=== PATIENT | female | born 1960 | race Caucasian/White ===

== ENCOUNTER 2016-09-15 14:22 | Emergency (ER) | payer OTHER ==
[~2016-09-15] VITALS: Ht 175.3 cm; Wt 81.1 kg
[~2016-09-15 14:22] MED LIST: ADVIN50/60 INH; FLUT0.15 NAE
[2016-09-15 14:30] VITALS: TEMP 36.5; Ht 175.3 cm; Wt 81.1 kg
[2016-09-15] MEDS ORDERED: CEPH500C PO (15:12)
[2016-09-15] MEDS ORDERED: CEFTRIAXONE SOD INJ 1 GM ADDVIAL IV STA (15:23)
[2016-09-15 15:57] LABS: BASO % 0.6 %; BASO ABS # 0.03 K/uL (0-0.2); COMPLETE YES; EOS % 3.4 %; HEMATOCRIT 38.5 % (37-47); IG% 0.2 %; MEAN CELL VOLUME 79.9 fL (80-100); MEAN CORPUSCULAR HEMOGLOBIN 26.8 pg (25-34); MEAN CORPUSCULAR HGB CONC 33.5 g/dl (32-36); MEAN PLATELET VOLUME 9.4 fL (7.4-10.4); MONO % 10.1 %; NEUT % 55.7 %; PLATELET COUNT 384 K/uL (130-400); RED BLOOD COUNT 4.82 M/uL (4.2-5.4); WHITE BLOOD COUNT 5.33 K/uL (4.8-10.8)
--- NOTE | 2016-09-15 16:16 | DIAGNOSTIC IMAGING REPORT ---
RIGHT FOOT MIN 3 VIEWS ROUTINE CLINICAL HISTORY: Right foot infection. History of tendon surgery. COMPARISON: August 04, 2016 DISCUSSION: The bones are mildly osteopenic. No acute fractures are visualized. No destructive lesions are evident. There is a plantar calcaneal spur. There is no evidence for soft tissue swelling. IMPRESSION: 1. Mild osteopenia 2. No destructive changes identified. No evidence of fracture. Electronically signed by: Corby Monaco M.D. 09/15/2016 4:14 PM Dictated Date/Time: 09/15/2016 4:12 PM
[2016-09-15 16:20] LABS: BUN/CREATININE RATIO 20.1 (10-20); CALCIUM 8.6 mg/dl (8.5-10.1); CREATININE 0.71 mg/dl (0.60-1.20); POTASSIUM 3.9 mmol/L (3.5-5.1)
[2016-09-15 16:22] LABS: ALB/GLOB RATIO 0.9 (0.9-2); C-REACTIVE PROTEIN 0.99 mg/dl (0-0.29)
[2016-09-15] MEDS ORDERED: SULF800T23 PO (18:30)
[2016-09-15] MEDS ORDERED: SEPTRA DS HOME PACK 1 EA VIAL PO ONE (18:30)
[2016-09-15 18:44] VITALS: BP 152/85; PULSE 74; O2SAT 96
--- NOTE | 2016-09-15 22:53 | EMERGENCY ROOM VISIT NOTE ---
History First contact with patient: 15:04 Chief Complaint: INFECTION Stated Complaint: RIGHT FOOT INFECTED Nursing Triage Summary: Triage note: Pt reports "my right foot is infected." pt reports "my foot will clear up and then it will get worse again, it started getting worse on sunday." pt reports she started keflex on sunday - as ordered by [facility]. pt has appt with [facility] sunday and possible surgery on sunday. History of Present Illness The patient is a 55 year old female who presents to the Emergency Room with complaints of infection of her right foot. The patient has had an ongoing infection in this foot for the past several months. She initially stepped on a piece of glass around 5 months ago, which did cause a lacerated tendon. She had this repaired with [facility]. She subsequently had 3 additional surgeries for postoperative infections. The patient contacted [facility] today as she developed purulent drainage from a small hole in her foot as well as redness of her middle right toe. The patient was referred to the emergency department for further care and management. She has not had fever or chills. She has been able to walk on the foot. She rates her current discomfort a 5/10. Review of Systems More than 10 systems were reviewed and otherwise negative with the exception of history of present illness. Past Medical/Surgical History Surgical Problems: (1) S/P foot surgery, right Family History Patient reports no known family medical history. Social History Smoking Status: Never Smoker Marital Status: Housing Status: lives with family Occupation Status: employed Current/Historical Medications Scheduled Cephalexin Monohydrate (Keflex), 500 MG PO QID Fluticasone Prop/Salmeterol (Advair Diskus 500/50 60 Dose), 1 PUFFS INH HS Fluticasone Propionate (Nasal) (Flonase Allergy Relief), 2 SPRAY BENJI HS Sulfamethoxazole-Trimethoprim (Bactrim Ds 800MG/160MG), 1 TAB PO BID Allergies Coded Allergies: No Known Allergies (Unverified , 09/15/16) Physical Exam Vital Signs Date Time Temp Pulse Resp B/P Pulse Ox O2 Delivery O2 Flow Rate FiO2 09/15/16 18:44 74 18 152/85 96 Room Air 09/15/16 17:52 66 18 149/86 98 Room Air 09/15/16 15:48 70 18 149/86 97 Room Air 09/15/16 14:30 36.5 71 18 197/105 98 Room Air Pain Rating (0-10): 0 Physical Exam VITALS: Vitals are noted on the nurse's note and reviewed by myself. Vital signs stable. GENERAL: Well-developed, well-nourished, white female, who is in no acute distress and resting comfortably. Patient is cooperative with the examination. HEAD: Normocephalic atraumatic. HEART: Regular rate and rhythm without murmurs gallops or rubs. LUNGS: Clear to auscultation bilaterally without wheezes, rales or rhonchi. No retractions or accessory muscle use. MUSCULOSKELETAL: The right foot on the plantar aspect has a small 2 mm opening that is draining a mostly clear fluid. The surrounding area is with some mild erythema. Examination of the base of the right third toe shows some erythema and edema. The patient is able to flex and extend the toes. She has full range of motion of the ankle. No palpable cords or obvious abscesses are noted. NEURO: Patient was alert and oriented to person place and time. CN II through XII grossly intact. Medical Decision & Procedures ER Provider Diagnostic Interpretation: RIGHT FOOT MIN 3 VIEWS ROUTINE CLINICAL HISTORY: Right foot infection. History of tendon surgery. COMPARISON: August 04, 2016 DISCUSSION: The bones are mildly osteopenic. No acute fractures are visualized. No destructive lesions are evident. There is a plantar calcaneal spur. There is no evidence for soft tissue swelling. IMPRESSION: 1. Mild osteopenia 2. No destructive changes identified. No evidence of fracture. Laboratory Results 09/15/16 15:39 Red Blood Count 4.82, Mean Corpuscular Volume 79.9, Mean Corpuscular Hemoglobin 26.8, Mean Corpuscular Hemoglobin Concent 33.5, Mean Platelet Volume 9.4, Neutrophils (%) (Auto) 55.7, Lymphocytes (%) (Auto) 30.0, Monocytes (%) (Auto) 10.1, Eosinophils (%) (Auto) 3.4, Basophils (%) (Auto) 0.6, Neutrophils # (Auto ) 2.97, Lymphocytes # (Auto) 1.60, Monocytes # (Auto) 0.54, Eosinophils # (Auto ) 0.18, Basophils # (Auto) 0.03 09/15/16 15:39 Test 09/15/16 15:39 White Blood Count 5.33 K/uL (4.8-10.8) Red Blood Count 4.82 M/uL (4.2-5.4) Hemoglobin 12.9 g/dL (12.0-16.0) Hematocrit 38.5 % (37-47) Mean Corpuscular Volume 79.9 fL (80-100) Mean Corpuscular Hemoglobin 26.8 pg (25-34) Mean Corpuscular Hemoglobin Concent 33.5 g/dl (32-36) Platelet Count 384 K/uL (130-400) Mean Platelet Volume 9.4 fL (7.4-10.4) Neutrophils (%) (Auto) 55.7 % Lymphocytes (%) (Auto) 30.0 % Monocytes (%) (Auto) 10.1 % Eosinophils (%) (Auto) 3.4 % Basophils (%) (Auto) 0.6 % Neutrophils # (Auto) 2.97 K/uL (1.4-6.5) Lymphocytes # (Auto) 1.60 K/uL (1.2-3.4) Monocytes # (Auto) 0.54 K/uL (0.11-0.59) Eosinophils # (Auto) 0.18 K/uL (0-0.5) Basophils # (Auto) 0.03 K/uL (0-0.2) RDW Standard Deviation 41.1 fL (36.4-46.3) RDW Coefficient of Variation 14.1 % (11.5-14.5) Immature Granulocyte % (Auto) 0.2 % Immature Granulocyte # (Auto) 0.01 K/uL (0.00-0.02) Erythrocyte Sedimentation Rate 32 mm/hr (0-21) Anion Gap 8.0 mmol/L (3-11) Est Creatinine Clear Calc Drug Dose 100.8 ml/min Estimated GFR () 110.4 Estimated GFR (Non- 95.2 BUN/Creatinine Ratio 20.1 (10-20) Calcium Level 8.6 mg/dl (8.5-10.1) Total Bilirubin 0.3 mg/dl (0.2-1) Aspartate Amino Transf (AST/SGOT) 12 U/L (15-37) Alanine Aminotransferase (ALT/SGPT) 16 U/L (12-78) Alkaline Phosphatase 120 U/L (45-117) C-Reactive Protein 0.99 mg/dl (0-0.29) Total Protein 7.6 gm/dl (6.4-8.2) Albumin 3.7 gm/dl (3.4-5.0) Globulin 3.9 gm/dl (2.5-4.0) Albumin/Globulin Ratio 0.9 (0.9-2) Medications Administered Medications (Trade) Dose Ordered Sig/Ankur Route Start Time Stop Time Status Last Admin Dose Admin Ceftriaxone Sodium (Rocephin Inj) 1 gm NOW STAT IV 09/15/16 15:23 09/15/16 15:26 DC 09/15/16 15:46 1 GM Trimethoprim/ Sulfamethoxazole (Sulfameth/ Trimeth Ds 800/ 160MG Home Pack) 1 homepack UD ONCE PO 09/15/16 18:30 09/15/16 18:31 DC 09/15/16 18:43 1 HOMEPACK ED Course Physical exam and history were performed. Nursing notes and EMR were reviewed. Patient appears to have what appears to be an infection of her right foot. This has been ongoing for some time for the patient and she was evidently sent here by orthopedics. She does not have gross abscess or significant tenderness with range of motion. I did gather a culture from the wound. Further discussion with the patient shows that she has been on Keflex for the past several days. Because of this I did elect to draw labs and establish IV access. X-ray was performed. The patient was given 1 g IV Rocephin here in the department. The patient's blood work is as above and was reviewed. She does not have a significant elevated white blood cell count, anemia, bandemia, or gross electrolyte imbalance. Her sedimentation rate and CRP are mildly elevated. X- ray does not show fracture or destructive bony process. I did attempt to contact the patient's surgeon, but after waiting for nearly 2 hours in the emergency department I was informed that her surgeon was out of town, and it was unlikely that we would be in touch with him today. Overall the patient does appear stable for discharge home. She does not appear to have bony destruction or other significant findings on exam. She does have an appointment in a few days with orthopedics. I will add Bactrim to her Keflex, as hopefully this will continue to improve her symptoms. The patient was otherwise thoroughly invited to return to the emergency department with new, worsening, or concerning symptoms. The patient was pleased with this plan of voice understanding. The chart was completed utilizing [employer] Speech Voice Recognition Software. Grammatical errors, random word insertions, pronoun errors, and incomplete sentences are an occasional consequence of this system due to software limitations, ambient noise, and hardware issues. Any formal questions or concerns about the content, text, or information contained within the body of this dictation should be directly addressed to the provider for clarification. . Medical Decision Differential diagnosis includes, but is not limited to: Cellulitis, osteomyelitis, abscess, postoperative infection, and others Impression Primary Impression: Infection of right foot Departure Information Dispostion Home / Self-Care Condition GOOD Prescriptions Sulfamethoxazole-Trimethoprim (Bactrim Ds 800MG/160MG) 1 Tab Tab 1 TAB PO BID for 7 Days, #14 TAB Prov: Tim Castillo PA-C 09/15/16 Referrals Kevin Gottlieb D.O. (PCP) Forms HOME CARE DOCUMENTATION FORM, IMPORTANT VISIT INFORMATION Patient Instructions My [facility] Additional Instructions You were seen and evaluated today on an emergency basis only. This is not a substitute for, or an effort to provide, complete comprehensive medical care. It is not possible to recognize and treat all injuries or illnesses in a single emergency department visit. For this reason it is recommended that you followup with Orthopedics, Dr. Gottlieb's office, as scheduled on Sunday for ongoing care and evaluation. Continue Keflex. Trimethoprim-Sulfamethoxazole(Bactrim DS): Take one pill twice daily for 7 days for your skin infection. All antibiotics can cause diarrhea. If this occurs and you feel worse or it does not resolve in 1-2 days follow up with your doctor or return to the Emergency Department as this could be signs of serious underlying problems. Any medication can cause an allergic reaction, stop the pills immediately and return to the ER for rash, hives, breathing difficulties, or swelling. You are welcome to return to the emergency department anytime with new, worsening, or concerning symptoms.
[2016-09-20] MEDS ORDERED: SULF800T23 PO (07:55)
== END 2016-09-15 19:09 | disposition home or self-care (01) ==
LOC: C.EDB 14:26
DX: L08.9 Local infection of the skin and subcutaneous tissue, unspecified (principal); Z98.890 Other specified postprocedural states

== ENCOUNTER 2016-09-20 11:21 | Inpatient (IN) | payer OTHER ==
--- NOTE | 2016-09-19 18:38 | HISTORY & PHYSICAL EXAMINATION ---
DATE OF ADMISSION: 09/20/2016 SUBJECTIVE CHIEF COMPLAINT: Right foot pain. HISTORY OF PRESENT ILLNESS: This is a patient who had undergone a right foot surgery to repair the flexor tendon laceration on the plantar aspect of her right foot and also an I\T\D after a foreign body that penetrated the patient's foot. The surgery took place on 04/17/2016. Over the past 5 months, the patient has undergone 3 separate I\T\D of the right foot for recurrent infection, more recently she had a flareup of the infection and was treated with p.o. antibiotics; however, after stopping the p.o. antibiotics, the foot became inflamed again and an area opened and was draining purulent discharge and also the pain had increased. She was seen recently and she is being set up for a repeat I\T\D of the right foot. PAST MEDICAL HISTORY: Allergic rhinitis. PAST SURGICAL HISTORY: Right foot surgery x4. SOCIAL HISTORY: The patient denies alcohol and tobacco use. ALLERGIES: No known drug allergies. FAMILY HISTORY: Noncontributory. CURRENT MEDICATIONS: Flonase. OBJECTIVE PHYSICAL EXAMINATION: GENERAL: The patient is alert and oriented x3. She is in no acute distress. She is a well-dressed, well-nourished 55-year-old female, her affect is appropriate. CARDIOVASCULAR: Heart has a regular rhythm and rate without murmurs. LUNGS: Clear to auscultation bilateral. Dorsalis pedis, posterior tib pulse +2/4. Cap refill is less than 2 seconds. LYMPHATIC: No evidence of any swollen lymph nodes. MUSCULOSKELETAL: The patient has a compensated gait favoring the right lower extremity. Upon inspection of the right lower extremity, the patient is noted to have an open area at the mid portion of the incision at the plantar aspect of the right forefoot. At this time, there is mild bloody discharge. There is no purulence noted and there is no fluctuance noted beneath the skin. There is some tenderness with palpation of the third toe and with passive range of motion of the third toe. There is no erythema. There is no streaking noted. NEUROLOGIC: Sensation normal and intact distally. ASSESSMENT AND DIAGNOSES: 1. Right foot cellulitis with possible recurrent abscess. 2. Right foot ulceration status post right foot surgery x4. PLAN: Above assessment was discussed with the patient. At this time, it was recommended the patient to undergo a repeat I\T\D of the plantar aspect of the right foot also removal of the permanent sutures from within the third flexor tendon that was repaired in April of 2016. All potential risks, benefits, complications, alternatives and rehab have been discussed with the patient. At this time, she wishes to proceed with the surgery as indicated. She will be scheduled for the surgery on 09/20/2016.
[~2016-09-20] VITALS: Ht 175.3 cm; Wt 75.0 kg
[2016-09-20] VITALS (8 sets, daily range): BP systolic 134–152; BP diastolic 75–96; PULSE 66–82; TEMP 36.3–36.6; O2SAT 95–100; Ht 175.3 cm; Wt 75.0 kg
[~2016-09-20 11:21] MED LIST changes: +BUPIVACAINE 0.5 % 5 MG/1 ML PF 10ML VIAL ONE; +CEPH500C PO; +LACTATED RINGER'S 1000ML 1,000 ML IV SCH; +SULF800T23 PO
[2016-09-20] MEDS ORDERED: albuterol inhaler INH (12:19)
[2016-09-20] MEDS ORDERED: CEPH500C2 PO (12:20)
[2016-09-20] MEDS ORDERED: ACET-1256 PO (12:21)
[2016-09-20] MEDS ORDERED: CEFAZOLIN SOD 1000MG/55 ML D5W IV ONE (12:51)
[2016-09-20] MEDS ORDERED: FENTANYL CITRATE INJ 50 MCG/1 ML 2 ML VIAL ONE (13:04)
[2016-09-20] MEDS ORDERED: MIDAZOLAM HCL 1 MG/ML 2ML VIAL ONE (13:04)
[2016-09-20] MEDS ORDERED: LACTATED RINGER'S 1000ML 1,000 ML IV PRN (13:32)
--- NOTE | 2016-09-20 13:35 | History & Physical Bridge Note ---
H&P Re-Evaluation Bridge Note: I have examined the patient, reviewed the History & Physical and in the interval since the performance of the History & Physical I have noted the following changes of clinical significance: No changes noted
[2016-09-20] MEDS ORDERED: FENTANYL CITRATE INJ 50 MCG/1 ML 2 ML VIAL IV PRN (13:45)
[2016-09-20] MEDS ORDERED: ONDANSETRON INJ 2 MG/ML 2 ML VIAL IV PRN ×2 (13:45→15:30)
[2016-09-20] MEDS ORDERED: KETAMINE HCL INJ 50 MG/ML 10 ML VIAL ONE (14:14)
[2016-09-20] MEDS ORDERED: PROPOFOL IV EMULSION 10 MG/ML 20 ML VIAL IV ONE (14:26)
[2016-09-20] MEDS ORDERED: ONDANSETRON INJ 2 MG/ML 2 ML VIAL ONE (14:26)
[2016-09-20] MEDS ORDERED: SODIUM CHLORIDE 0.9% INJ 10 ML VIAL ONE (14:26)
[2016-09-20] MEDS ORDERED: EpHEDrine SULFATE 50MG/5ML SYR ONE (14:26)
[2016-09-20] MEDS ORDERED: LIDOCAINE HCL 2% 2 ML VIAL (20MG/ML) ONE (14:26)
[2016-09-20] MEDS ORDERED: DEXAMETHASONE SOD INJ 4 MG/ML VIAL ONE (14:26)
[2016-09-20] MEDS ORDERED: BUPIVACAINE 0.5 % 5 MG/1 ML MPF 30ML VIAL INJ ONE (15:26)
[2016-09-20] MEDS ORDERED: BACITRACIN 50000 UNIT VIAL IR ONE (15:26)
[2016-09-20] MEDS ORDERED: MoRPHine SULFATE 2 MG/ML CARP IV PRN (15:30)
[2016-09-20] MEDS ORDERED: BISACODYL 10 MG SUPP PR PRN (15:30)
[2016-09-20] MEDS ORDERED: ALUMINUM/MAGNESIUM/SIMETH (MAALOX MAX) 30 ML UDC PO PRN (15:30)
[2016-09-20] MEDS ORDERED: ZOLPIDEM TARTRATE 5 MG TAB PO PRN (15:30)
[2016-09-20] MEDS ORDERED: SOD PHOSPHATE/SOD BIPHOSPHATE ENEMA 132 ML BTL PR PRN (15:30)
[2016-09-20] MEDS ORDERED: MAGNESIUM HYDROXIDE SUSP 30 ML UDC PO PRN (15:30)
[2016-09-20] MEDS ORDERED: KETOROLAC TROMETHAMINE 30 MG/ML VIAL ONE (15:31)
--- NOTE | 2016-09-20 15:38 | [facility] Post Operative Brief Note ---
Immediate Operative Summary Operative Date Sep 20, 2016. Pre-Operative Diagnosis Right foot deep infection, Retained sutures x 2, Recurrent ulcer plantar foot, Cellulitis of right foot Post-Operative Diagnosis Right foot deep infection, Retained sutures x 2, Recurrent ulcer plantar foot, Cellulitis of right foot Procedure(s) Performed Right Foot Incision and Drainage Plantar Ulceration, Removal Sutures from 3rd Flexor Tendon x 2, Debridement of:Skin, Fascia, Tendon Surgeon Dr. Gottlieb Academic Support Coordinator Surgeon(s) none Estimated Blood Loss 3ml Findings See Dict Specimens A) cultures of right lower limb, plantar, deep Drains Iodoform gauze 1/2" Anesthesia GLMA w/ partial ankle block Complication(s) None Disposition Recovery Room / PACU
--- NOTE | 2016-09-20 16:16 | Anesthesiology Progress Note ---
Anesthesia Post Op Note Date & Time Sep 20, 2016 at 16:15 Vital Signs Pain Intensity: 5 Vital Signs Past 12 Hours Date Time Temp Pulse Resp B/P Pulse Ox O2 Delivery O2 Flow Rate FiO2 09/20/16 16:01 36.3 86 20 143/93 100 Nasal Cannula 2 09/20/16 15:48 82 18 09/20/16 15:48 82 18 138/86 99 09/20/16 15:48 82 18 138/86 99 09/20/16 15:48 82 18 09/20/16 15:43 88 13 09/20/16 15:43 92 13 148/79 100 09/20/16 15:43 92 13 148/79 100 09/20/16 15:43 88 13 09/20/16 15:38 86 20 09/20/16 15:38 85 20 155/93 98 09/20/16 15:38 85 20 155/93 98 09/20/16 15:38 86 20 09/20/16 15:33 85 18 100 09/20/16 15:33 85 18 100 09/20/16 15:33 84 18 09/20/16 15:33 84 18 09/20/16 15:28 90 19 100 09/20/16 15:28 90 19 09/20/16 15:28 90 19 09/20/16 15:28 90 19 100 09/20/16 15:23 36.1 91 16 155/93 100 Mask 10 09/20/16 12:10 36.4 66 18 152/96 99 Room Air Notes Mental Status: alert / awake / arousable, participated in evaluation Pt Amnestic to Procedure: Yes Nausea / Vomiting: adequately controlled Pain: adequately controlled Airway Patency, RR, SpO2: stable & adequate BP & HR: stable & adequate Hydration State: stable & adequate Anesthetic Complications: no major complications apparent
--- NOTE | 2016-09-20 17:08 | OPERATIVE REPORT ---
DATE OF OPERATION: 09/20/2016 PREOPERATIVE DIAGNOSES: 1. Right foot deep infection. 2. Retained sutures x2. 3. Right foot recurrent ulcer, plantar foot. 4. Cellulitis. POSTOPERATIVE DIAGNOSES: Same. PROCEDURES: 1. Right foot incision and drainage plantar ulcer. 2. Debridement of skin, fascia, and tendon of the right foot. 3. Removal of sutures x2. SURGEON: Dr. Gottlieb. GENERAL DENTIST/OWNER: None. ANESTHESIA: General LMA with partial ankle block. SPECIMENS: Aerobic, anaerobic and Gram stain, specimens from the plantar aspect of the right foot. DRAINS: Iodoform gauze 1/2 inch x6 inches. COMPLICATIONS: None. BLOOD LOSS: 5 mL. 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 At that time she lacerated completely her third flexor tendon, right foot. She had inability to flex the 3rd toe. She underwent operative repair of the third flexor tendon and developed a deep infection of the right foot, had multiple irrigations and debridements. The right foot eventually healed, the flexor tendon with stable fixation of the toe, some stiffness and then several months after developed a deep infection in the ulceration plantar aspect of the foot. Placed on antibiotics which resolved the ulceration. She has had recurrence of the ulcerations and scheduled for surgery as indicated. All potential risks, benefits, complications, alternatives, rehab, potential for incomplete relief of symptoms, need for further surgery, DVT, PE, , persistent pain, swelling, scarring, weakness, neurovascular injury, compromise of function of the 3rd toe, need for further washouts was discussed with patient and her and they decided to proceed with the procedure as indicated. DESCRIPTION OF PROCEDURE: The patient was taken to the operative suite, placed supine on the operating room table. I reviewed the consent and identification of proper operative site. The patient was anesthetized, LMA was placed. Tourniquet was applied high on the right thigh over cast padding; however, the pneumatic tourniquet was not used during the case. Next, right lower extremity was then sterilely prepped and draped in usual fashion, elevated and partially exsanguinated with an Esmarch bandage. Esmarch tourniquet applied over sterile surgical towel at the level of the ankle. Next, a partial ankle block was then performed with approximately 20 mL of 0.5% Marcaine plain, the posterior tibial nerve and then over the saphenous nerve and then over the medial plantar nerve branch. Next, a zigzag incision was placed on the plantar aspect of the right foot at the site of previous incision including through the ulceration of the plantar foot. Careful dissection was performed through the scar tissue down to the level of the third flexor tendon sheath. There was noted to be fluid adjacent to the repair site which appeared to be intact. The sutures present were removed and the fluid was then cultured, aerobic, anaerobic and Gram stain specimens passed off. Next, the tissue was then debrided using a curette and rongeur back to viable appearing tissue. There was abundant scar present. The flexor tendon was then carefully debrided with a rongeur and a 15 blade and forceps as well as the fascia with a rongeur and curette. After all questionable necrotic tissue and exudate was then removed. The wound was then cleansed with pulsatile lavage with 3 liters with bacitracin. Next, top gloves and top sheet were changed and the skin flaps were then loosely closed using interrupted 4-0 nylon over a 1/2 inch iodoform gauze drain which was then placed through the ulceration site on the plantar aspect of the foot. Next, a sterile, lightly compressive dressing was applied, overwrapped with a Xeroform gauze, sterile 4 x 4's, cast padding and ABD pad was then applied overwrapped with a Coban. The tourniquet was released. The patient was awakened and taken to recovery in stable condition. I attest to the content of the Intraoperative Record and any orders documented therein. Any exceptio ns are noted below.
[2016-09-20] MEDS: OXYCODONE HCL IR 5 MG TAB (IMMEDIATE RELEASE) PO PRN ×2 (19:09→23:41)
[2016-09-20] MEDS: D5W AND 1/2NSS + 20MEQ KCL 1,000 ML IV SCH (19:10)
[2016-09-20] MEDS: NAFCILLIN SOD IV 2 GM in DEXTROSE 5% ADD-VANTAGE 100ML 100 ML IV SCH ×2 (19:10→22:49)
[2016-09-20] MEDS ORDERED: INFLUENZA VIRUS QUAD VACCINE 0.5 ML SYR IM. ONE (19:15)
[2016-09-20] MEDS ORDERED: INFLUENZA ADMINISTRATION CHARGE ONE (19:15)
--- NOTE | 2016-09-20 20:37 | INTERNAL MEDICINE CONSULTATION ---
DATE OF CONSULTATION: 09/20/2016 ATTENDING PHYSICIAN: Kevin Gottlieb DO REASON FOR CONSULTATION: Perioperative medical management. HISTORY OF PRESENT ILLNESS: Ms. Duran is a 55-year-old lady, who I am asked to see regarding perioperative management of her asthma and allergic rhinitis. She is being seen postop after undergoing I&D of a right plantar infection. She has had several I&Ds over the past couple of months. This initially started after she underwent a right third flexor tendon repair on 04/17/2016. Apparently she had stepped on a piece of glass, had total laceration of the right third flexor tendon, underwent repair, postoperatively developed an infection and since that time has undergone now for separate I\T\D procedures of the right foot. Most recently, she was here in May 2016 and at that time was found to have MSSA growing from her wound cultures. She was discharged home to complete at least 2 weeks of nafcillin. She says that she followed up as an outpatient. This did heal. She was back in our ER in August 2016 again complaining of cellulitis, was discharged home on p.o. antibiotics and was seen again on September 15 in the ER again with an infection. At this point, arrangements were made for her to undergo another I\T\D. At this point, she is being seen postoperatively on the medical/surgical floor. She is resting comfortably in her bed and has no complaints at this time. She denies any recent fever, chills or malaise. Denies any chest pain, shortness of breath or cough. She has had no recent asthma exacerbation. Denies any abdominal pain, nausea, vomiting or diarrhea. Denies any urinary complaints. Denies any lower extremity edema. Denies any newly swollen or painful joints and denies any rash. She did have some basic workup in the ER on September 15. At that time, her CBC showed a white blood cell count of 5300 with 56% neutrophils. Hemoglobin was 12.9, hematocrit 38.5, platelets 384,000 and sed rate was elevated at 32. A set of chemistries revealed sodium of 140, potassium 3.9, chloride 108, bicarbonate 24, BUN 14, creatinine 0.7, glucose 94, calcium 8.6, albumin was 3.7, protein was 7.6, alkaline phosphatase was 120, ALT 16, AST 12. CRP was also elevated at 0.99. Urinalysis at that time showed clear yellow urine that was trace positive for occult blood, but had no RBCs; it was otherwise unremarkable. An x-ray of the right foot on 09/15/2016 showed mildly osteopenic bones with no evidence for any destructive changes. No evidence for fracture. No evidence for soft tissue swelling. ALLERGIES: None. CURRENT MEDICATIONS: Include: 1. Nafcillin. 2. Maalox p.r.n. 3. Dulcolax suppository p.r.n. 4. Benadryl p.r.n. 5. Colace p.r.n. 6. Fentanyl p.r.n. for pain. 7. Milk of magnesia p.r.n. 8. Morphine p.r.n. 9. Multivitamin. 10. Zofran p.r.n. 11. Oxycodone. 11. Protonix. 12. Potassium chloride. 13. Senokot. 14. Fleet enema p.r.n. 15. Ambien. PAST MEDICAL HISTORY: Includes: 1. Asthma, which she reports has been well-controlled, has not had a recent exacerbation. 2. Allergic rhinitis, controlled with Flonase. FAMILY HISTORY: The patient denies any family history of asthma, hypertension, atherosclerotic coronary artery disease or malignancy. SOCIAL HISTORY: The patient lives at home with her . She is completely independent. 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 She is a lifelong nonsmoker. Does not abuse alcohol or illicit drugs. REVIEW OF SYSTEMS: A 10-system review was conducted and was found to be completely negative except as otherwise indicated above in the history of present illness. PHYSICAL EXAMINATION: VITAL SIGNS: Currently show temperature is 36.6, pulse 82, respiratory rate 14, blood pressure is 139/77 and oxygen saturation 98% on room air. GENERAL: The patient is awake, alert, oriented in no acute distress. HEENT: The sclerae are nonicteric and the mucous membranes are moist. NECK: The trachea is midline. There is no JVD. RESPIRATORY: The lungs are grossly clear with fair to good air entry. She is not in any respiratory distress. CARDIOVASCULAR: S1 and S2 are heard with regular rate and rhythm. There is no murmur, rub or gallop. ABDOMEN: Soft, nontender, nondistended. Bowel sounds are present. EXTREMITIES: Warm and well-perfused without edema. SKIN: Warm and dry. There is no cyanosis or rash. MUSCULOSKELETAL: There is no chest wall tenderness. There are no obvious joint effusions or joint tenderness. EXTREMITIES: The right foot was not examined as it is surgically dressed, but the dressing does appear to be clean and dry. NEUROLOGIC: Nonfocal. PSYCHIATRIC: The patient is calm and cooperative. DIAGNOSTIC INVESTIGATIONS: Recent labs and imaging were reviewed as outlined above in the history of present illness. ASSESSMENT AND PLAN: 1. Recurrent right foot infection. We will await further recommendations from infectious disease. The patient will be continued on nafcillin as her culture from the grew out methicillin-resistant staphylococcus aureus. Further care per orthopedics and infectious disease. 2. Asthma. This is stable and not in exacerbation. Would continue her on her usual Advair with p.r.n. albuterol as needed. 3. Allergic rhinitis, would continue on Flonase, this is well-controlled as well. 4. Deep venous thrombosis prophylaxis per orthopedics. She has on SCDs and ROSE hose. Thank you for allowing us to participate in the care of your patient. We will continue to follow her along with you. Total time spent preparing this consult was 30 minutes. YUNG
[2016-09-20] MEDS: DOCUSATE SODIUM 100 MG CAP PO SCH (21:46)
[2016-09-20] MEDS: SENNA 8.6 MG TAB PO SCH (21:46)
[2016-09-21] MEDS: NAFCILLIN SOD IV 2 GM in DEXTROSE 5% ADD-VANTAGE 100ML 100 ML IV SCH ×3 (02:21→09:25)
[2016-09-21 03:32] VITALS: BP 108/65; PULSE 63; TEMP 36.5; O2SAT 97
[2016-09-21] MEDS: D5W AND 1/2NSS + 20MEQ KCL 1,000 ML IV SCH ×3 (04:20→23:39)
[2016-09-21 06:00] LABS: HEMATOCRIT 36.1 % (37-47); MEAN CELL VOLUME 79.9 fL (80-100); MEAN CORPUSCULAR HEMOGLOBIN 26.1 pg (25-34); MEAN CORPUSCULAR HGB CONC 32.7 g/dl (32-36); MEAN PLATELET VOLUME 9.3 fL (7.4-10.4); PLATELET COUNT 372 K/uL (130-400); RED BLOOD COUNT 4.52 M/uL (4.2-5.4); WHITE BLOOD COUNT 10.23 K/uL (4.8-10.8)
[2016-09-21 06:30] LABS: BUN/CREATININE RATIO 9.3 (10-20); CREATININE 0.98 mg/dl (0.60-1.20); POTASSIUM 4.3 mmol/L (3.5-5.1)
[2016-09-21 07:00] VITALS: BP 100/60; PULSE 72; TEMP 36.3; O2SAT 97
--- NOTE | 2016-09-21 08:06 | Orthopedic Progress Note ---
Orthopedic Progress Note Date of Service Sep 21, 2016. Subjective Post OP Day: 1 Reports: feeling well, pain controlled w PO medications (Still feels like the block is working. Her foot is just now starting to have some tingling.), Denies : calf pain, complaints Objective calves soft nontender, N/V intact, capillary refill less than 2 sec., dressing C /D/I, incision C/D/I, A&O x3, toes mobile Right foot plantar incision is well approximated. Packing from the central portion of the wound. No erythema or purulence noted. Bloody d/c from the packing site. Approximately 8 inches of packing removed. Date Time Temp Pulse Resp B/P Pulse Ox O2 Delivery O2 Flow Rate FiO2 09/21/16 07:00 36.3 72 18 100/60 97 Room Air 09/21/16 03:32 36.5 63 16 108/65 97 Room Air 09/20/16 23:30 Room Air 09/20/16 23:25 36.4 79 16 137/75 96 Room Air 09/20/16 20:12 36.4 76 16 143/76 96 Room Air 09/20/16 19:00 36.4 76 16 138/79 96 Room Air 09/20/16 18:42 36.3 74 16 146/84 Room Air 09/20/16 18:10 36.3 16 146/84 95 Room Air 09/20/16 17:32 36.6 82 14 139/77 98 Room Air 09/20/16 17:00 Room Air 09/20/16 17:00 Room Air 09/20/16 16:56 36.4 74 18 134/75 100 Room Air 09/20/16 16:01 36.3 86 20 143/93 100 Nasal Cannula 2 09/20/16 15:48 82 18 09/20/16 15:48 82 18 138/86 99 09/20/16 15:48 82 18 138/86 99 09/20/16 15:48 82 18 09/20/16 15:43 88 13 09/20/16 15:43 92 13 148/79 100 09/20/16 15:43 92 13 148/79 100 09/20/16 15:43 88 13 09/20/16 15:38 86 20 09/20/16 15:38 85 20 155/93 98 09/20/16 15:38 85 20 155/93 98 09/20/16 15:38 86 20 09/20/16 15:33 85 18 100 09/20/16 15:33 85 18 100 09/20/16 15:33 84 18 09/20/16 15:33 84 18 09/20/16 15:28 90 19 100 09/20/16 15:28 90 19 09/20/16 15:28 90 19 09/20/16 15:28 90 19 100 09/20/16 15:23 36.1 91 16 155/93 100 Mask 10 09/20/16 12:10 36.4 66 18 152/96 99 Room Air Laboratory Results 24 Hours: Test 09/21/16 05:42 Hematocrit 36.1 % Hemoglobin 11.8 g/dL Additional Notes: GRAM STAIN Final 09/21/16-0759 RESULT MANY POLYS NO ORGANISMS SEEN OR AER/NIKKI CULT Results Pending Assessment & Plan Assessment: POD #1 s/p 1. Right foot incision and drainage plantar ulcer. 2. Debridement of skin, fascia, and tendon of the right foot. 3. Removal of sutures x2 Plan: IV Nafcillin Awaiting final cultures. Gram stain negative for organisms. Consult ID for antibiotic input. D/C planning. Inhouse Planning Pain Management: Morphine, Oxy IR DVT Prophylaxis: ASA Discharge Planning Discharge Planning: uncertain (Possibly home with home health if IV ABX needed. ) Pain Management: Percocet
[2016-09-21] MEDS: ASPIRIN 81 MG ECTAB PO SCH ×2 (09:16→21:14)
[2016-09-21] MEDS: PANTOprazole SOD 40 MG TAB PO SCH (09:16)
[2016-09-21] MEDS: MULTIVITAMIN TAB PO SCH (09:16)
[2016-09-21] MEDS: DOCUSATE SODIUM 100 MG CAP PO SCH ×2 (09:16→21:14)
[2016-09-21] MEDS: OXYCODONE HCL IR 5 MG TAB (IMMEDIATE RELEASE) PO PRN ×2 (09:25→15:47)
--- NOTE | 2016-09-21 09:32 | Medical Consult ---
Consultation Date of Consultation: Sep 21, 2016. Attending Physician: Kevin Gottlieb D.O. Reason for Consultation: Right foot infection History of Present Illness 55-year-old female well known to me from previous infectious disease consultations, with history of right foot infection following repair of traumatic tendon injury after stepping on glass. Cultures were positive at onset for methicillin sensitive Staph aureus comment patient has previously received a 6 week course of IV nafcillin followed by oral therapy. She did well until oral antibiotics were discontinued, and she has now had several recurrences of soft tissue infection, again growing methicillin sensitive Staph aureus. She has responded to drainage and antibiotics, but now Re presents with 1 week of worsening infection with purulent drainage, no fever but with chills. Has now undergone incision and drainage with significant debridement and removal of several sutures. About receiving IV nafcillin. Tolerating without apparent difficulty. Past Medical/Surgical History Surgical Problems: (1) S/P foot surgery, right (2) Asthma Family History Patient reports no known family medical history. Social History Smoking Status: Never Smoker Marital Status: Housing Status: lives with family Occupation Status: employed Allergies Coded Allergies: No Known Allergies (Unverified , 09/20/16) Current Inpatient Medications Current Inpatient Medications Medications (Trade) Dose Ordered Sig/Ankur Route Start Time Stop Time Status Last Admin Dose Admin Potassium Chloride/Dextrose/ Sod Cl (D5W And 1/2nss + 20meq KCl) 1,000 ml @ 100 mls/hr Q10H IV 09/20/16 18:00 10/20/16 17:59 09/21/16 04:20 100 MLS/HR Oxycodone HCl (Roxicodone Immediate Rel Tab) 1-2 TABS FOR PAIN 1 TABLET ... Q4H PRN PO 09/20/16 15:30 10/04/16 15:29 09/20/16 23:41 10 MG Morphine Sulfate (MoRPHine SULFATE INJ) 1 mg Q1HWA PRN IV 09/20/16 15:30 10/04/16 15:29 Magnesium Hydroxide (Milk Of Magnesia Susp) 30 ml Q6H PRN PO 09/20/16 15:30 10/20/16 15:29 Bisacodyl (Dulcolax Supp) 10 mg DAILY PRN HI 09/20/16 15:30 10/20/16 15:29 Sodium Biphosphate/ Sodium Phosphate (Fleet Enema) 132 ml DAILY PRN HI 09/20/16 15:30 10/20/16 15:29 Senna (Senokot Tab) 17.2 mg HS PO 09/20/16 21:00 10/20/16 20:59 09/20/16 21:46 17.2 MG Docusate Sodium (coLACE CAP) 100 mg BID PO 09/20/16 21:00 10/20/16 20:59 09/20/16 21:46 100 MG Diphenhydramine HCl (Benadryl Cap) 25 mg Q8H PRN PO 09/20/16 15:30 10/20/16 15:29 Al Hydrox/Mg Hydrox/Simethicone (Maalox Max Susp) 15 ml Q4H PRN PO 09/20/16 15:30 10/20/16 15:29 Zolpidem Tartrate (Ambien Tab) 5 mg HSZ PRN PO 09/20/16 15:30 10/20/16 15:29 Multivitamins (Multivitamin Tab) 1 tab QAM PO 09/21/16 09:00 10/21/16 08:59 Ondansetron HCl (Zofran Inj) 4 mg Q6H PRN IV 09/20/16 15:30 10/20/16 15:29 Pantoprazole Sodium 40 mg 40 mg QAM PO 09/21/16 09:00 10/21/16 08:59 Nafcillin Sodium 2 gm/Dextrose 100 ml @ 100 mls/hr Q4H IV 09/20/16 18:00 09/21/16 10:01 09/21/16 05:33 100 MLS/HR Nafcillin Sodium/ Dextrose (Unipen Iv/D5 100ml) 110 ml @ 100 mls/hr Q4H IV 09/21/16 14:00 09/30/16 17:59 Aspirin (Ecotrin Tab) 81 mg Q12 PO 09/21/16 09:00 10/21/16 08:59 Review of Systems Constitutional: + chills, No fever Eyes: No problem reported ENT: No problem reported Respiratory: No problem reported Cardiovascular: No problem reported Abdomen: No problem reported Musculoskeletal: + problem reported (see HPI) Genitourinary - Female: No problem reported Neurologic: No problem reported Psychiatric: No problem reported Endocrine: No problem reported Hematologic / Lymphatic: No problem reported Integumentary: + new/changing skin lesions Allergic / Immunologic: No problem reported Physical Exam Date Time Temp Pulse Resp B/P Pulse Ox O2 Delivery O2 Flow Rate FiO2 09/21/16 08:03 Room Air 09/21/16 07:00 36.3 72 18 100/60 97 Room Air 09/21/16 03:32 36.5 63 16 108/65 97 Room Air 09/20/16 23:30 Room Air 09/20/16 23:25 36.4 79 16 137/75 96 Room Air 09/20/16 20:12 36.4 76 16 143/76 96 Room Air 09/20/16 19:00 36.4 76 16 138/79 96 Room Air 09/20/16 18:42 36.3 74 16 146/84 Room Air 09/20/16 18:10 36.3 16 146/84 95 Room Air 09/20/16 17:32 36.6 82 14 139/77 98 Room Air 09/20/16 17:00 Room Air 09/20/16 17:00 Room Air 09/20/16 16:56 36.4 74 18 134/75 100 Room Air 09/20/16 16:01 36.3 86 20 143/93 100 Nasal Cannula 2 09/20/16 15:48 82 18 09/20/16 15:48 82 18 138/86 99 09/20/16 15:48 82 18 138/86 99 09/20/16 15:48 82 18 09/20/16 15:43 88 13 09/20/16 15:43 92 13 148/79 100 09/20/16 15:43 92 13 148/79 100 09/20/16 15:43 88 13 09/20/16 15:38 86 20 09/20/16 15:38 85 20 155/93 98 09/20/16 15:38 85 20 155/93 98 09/20/16 15:38 86 20 09/20/16 15:33 85 18 100 17 15:33 85 18 100 09/20/16 15:33 84 18 09/20/16 15:33 84 18 09/20/16 15:28 90 19 100 09/20/16 15:28 90 19 09/20/16 15:28 90 19 09/20/16 15:28 90 19 100 09/20/16 15:23 36.1 91 16 155/93 100 Mask 10 09/20/16 12:10 36.4 66 18 152/96 99 Room Air General Appearance: WD/WN, no apparent distress Head: normocephalic, atraumatic Eyes: normal inspection, EOMI, sclerae normal ENT: normal ENT inspection, hearing grossly normal, pharynx normal Neck: supple, no adenopathy, thyroid normal, trachea midline Respiratory/Chest: chest non-tender, lungs clear, normal breath sounds, no respiratory distress Cardiovascular: regular rate, rhythm, no gallop, no murmur Abdomen/GI: normal bowel sounds, non tender, soft, no organomegaly Back: normal inspection, no CVA tenderness Extremities/Musculoskelatal: no calf tenderness, normal capillary refill Neurologic/Psych: alert, normal mood/affect, oriented x 3 Skin: normal color, no rash, + pertinent finding (surgical dressing intact right foot) Lymphatic: no adenopathy Laboratory Results Date/Time Source Procedure Growth Status 09/20/16 14:40 Drainage-Deep Right Lower Extremity Gram Stain - Final Resulted 09/20/16 14:40 Drainage-Deep Right Lower Extremity Bacterial Culture Pending Resulted Last 24 Hours Test 09/21/16 05:42 White Blood Count 10.23 K/uL Red Blood Count 4.52 M/uL Hemoglobin 11.8 g/dL Hematocrit 36.1 % Mean Corpuscular Volume 79.9 fL Mean Corpuscular Hemoglobin 26.1 pg Mean Corpuscular Hemoglobin Concent 32.7 g/dl RDW Standard Deviation 41.9 fL RDW Coefficient of Variation 14.5 % Platelet Count 372 K/uL Mean Platelet Volume 9.3 fL Sodium Level 138 mmol/L Potassium Level 4.3 mmol/L Chloride Level 106 mmol/L Carbon Dioxide Level 22 mmol/L Anion Gap 10.0 mmol/L Blood Urea Nitrogen 9 mg/dl Creatinine 0.98 mg/dl Est Creatinine Clear Calc Drug Dose 67.0 ml/min Estimated GFR () 74.7 Estimated GFR (Non- 64.5 BUN/Creatinine Ratio 9.3 Random Glucose 138 mg/dl Calcium Level 8.0 mg/dl Hepatitis C Antibody Screen NEG RIGHT FOOT MIN 3 VIEWS ROUTINE CLINICAL HISTORY: Right foot infection. History of tendon surgery. COMPARISON: August 04, 2016 DISCUSSION: The bones are mildly osteopenic. No acute fractures are visualized. No destructive lesions are evident. There is a plantar calcaneal spur. There is no evidence for soft tissue swelling. IMPRESSION: 1. Mild osteopenia 2. No destructive changes identified. No evidence of fracture. Electronically signed by: Corby Monaco M.D. 09/15/2016 4:14 PM Dictated Date/Time: 09/15/2016 4:12 PM The status of this report is Signed. Draft = Assessment & Plan Chronic right foot infection likely with MSSA following repair of tendon laceration April 2016, now S/P debridement and removal of sutures X 2. Nafcillin appropriate and will need at least several weeks of IV therapy. Consider PICC line , nafcillin can be dosed at 12 grams daily by continuous infusion which she has done in past. Will discuss.
[2016-09-21 11:05] VITALS: BP 119/66; PULSE 67; TEMP 36.4; O2SAT 98
[2016-09-21] MEDS: DEXTROSE 5% IV SCH ×3 (13:34→21:14)
[2016-09-21] MEDS: NAFCILLIN SOD IV SCH ×3 (13:34→21:14)
--- NOTE | 2016-09-21 13:39 | Anesthesiology Progress Note ---
Anesthesia Post Op Note Date & Time Sep 21, 2016 at 13:39 Vital Signs Vital Signs Past 12 Hours Date Time Temp Pulse Resp B/P Pulse Ox O2 Delivery O2 Flow Rate FiO2 09/21/16 11:05 36.4 67 18 119/66 98 Room Air 09/21/16 08:03 Room Air 09/21/16 07:00 36.3 72 18 100/60 97 Room Air 09/21/16 03:32 36.5 63 16 108/65 97 Room Air Notes Mental Status: alert / awake / arousable, participated in evaluation Pt Amnestic to Procedure: Yes Nausea / Vomiting: adequately controlled Pain: adequately controlled Airway Patency, RR, SpO2: stable & adequate BP & HR: stable & adequate Hydration State: stable & adequate Anesthetic Complications: no major complications apparent
[2016-09-21 15:17] VITALS: BP 118/75; PULSE 66; TEMP 36.5; O2SAT 99
[2016-09-21 16:00] VITALS: O2SAT 99
[2016-09-21] MEDS: SENNA 8.6 MG TAB PO SCH (21:14)
[2016-09-21 22:57] VITALS: BP 133/82; PULSE 59; TEMP 37; O2SAT 97
[2016-09-22] MEDS: NAFCILLIN SOD IV SCH ×6 (01:35→21:59)
[2016-09-22] MEDS: DEXTROSE 5% IV SCH ×6 (01:35→21:59)
[2016-09-22 07:32] LABS: HEMATOCRIT 35.1 % (37-47); MEAN CELL VOLUME 81.3 fL (80-100); MEAN CORPUSCULAR HEMOGLOBIN 26.2 pg (25-34); MEAN CORPUSCULAR HGB CONC 32.2 g/dl (32-36); MEAN PLATELET VOLUME 9.9 fL (7.4-10.4); PLATELET COUNT 333 K/uL (130-400); RED BLOOD COUNT 4.32 M/uL (4.2-5.4); WHITE BLOOD COUNT 5.68 K/uL (4.8-10.8)
[2016-09-22 07:33] VITALS: BP 148/72; PULSE 79; TEMP 36.9; O2SAT 93
[2016-09-22 07:58] LABS: BUN/CREATININE RATIO 9.5 (10-20); CALCIUM 7.9 mg/dl (8.5-10.1); CREATININE 0.77 mg/dl (0.60-1.20); POTASSIUM 4.1 mmol/L (3.5-5.1)
[2016-09-22] MEDS: DOCUSATE SODIUM 100 MG CAP PO SCH ×2 (09:18→20:42)
[2016-09-22] MEDS: MULTIVITAMIN TAB PO SCH (09:18)
[2016-09-22] MEDS: PANTOprazole SOD 40 MG TAB PO SCH (09:18)
[2016-09-22] MEDS: ASPIRIN 81 MG ECTAB PO SCH ×2 (09:18→20:42)
[2016-09-22] MEDS: D5W AND 1/2NSS + 20MEQ KCL 1,000 ML IV SCH ×2 (09:18→20:41)
--- NOTE | 2016-09-22 10:46 | Hospitalist Progress Note ---
Hospitalist Progress Note Date of Service Sep 22, 2016. Subjective Pt evaluation today including: conversation w/ patient, physical exam, chart review, lab review, review of inpatient medication list No new complaints. Pain is well-controlled. Gram stain of wound culture showed no organisms and culture negative so far. Medications Current Inpatient Medications Medications (Trade) Dose Ordered Sig/Ankur Route Start Time Stop Time Status Last Admin Dose Admin Potassium Chloride/Dextrose/ Sod Cl (D5W And 1/2nss + 20meq KCl) 1,000 ml @ 100 mls/hr Q10H IV 09/20/16 18:00 10/20/16 17:59 09/22/16 09:18 100 MLS/HR Oxycodone HCl (Roxicodone Immediate Rel Tab) 1-2 TABS FOR PAIN 1 TABLET ... Q4H PRN PO 09/20/16 15:30 10/04/16 15:29 09/21/16 15:47 5 MG Morphine Sulfate (MoRPHine SULFATE INJ) 1 mg Q1HWA PRN IV 09/20/16 15:30 10/04/16 15:29 Magnesium Hydroxide (Milk Of Magnesia Susp) 30 ml Q6H PRN PO 09/20/16 15:30 10/20/16 15:29 Bisacodyl (Dulcolax Supp) 10 mg DAILY PRN MD 09/20/16 15:30 10/20/16 15:29 Sodium Biphosphate/ Sodium Phosphate (Fleet Enema) 132 ml DAILY PRN MD 09/20/16 15:30 10/20/16 15:29 Senna (Senokot Tab) 17.2 mg HS PO 09/20/16 21:00 10/20/16 20:59 09/21/16 21:14 17.2 MG Docusate Sodium (coLACE CAP) 100 mg BID PO 09/20/16 21:00 10/20/16 20:59 09/22/16 09:18 100 MG Diphenhydramine HCl (Benadryl Cap) 25 mg Q8H PRN PO 09/20/16 15:30 10/20/16 15:29 Al Hydrox/Mg Hydrox/Simethicone (Maalox Max Susp) 15 ml Q4H PRN PO 09/20/16 15:30 10/20/16 15:29 Zolpidem Tartrate (Ambien Tab) 5 mg HSZ PRN PO 09/20/16 15:30 10/20/16 15:29 Multivitamins (Multivitamin Tab) 1 tab QAM PO 09/21/16 09:00 10/21/16 08:59 09/22/16 09:18 1 TAB Ondansetron HCl (Zofran Inj) 4 mg Q6H PRN IV 09/20/16 15:30 10/20/16 15:29 Pantoprazole Sodium 40 mg 40 mg QAM PO 09/21/16 09:00 10/21/16 08:59 09/22/16 09:18 40 MG Nafcillin Sodium/ Dextrose (Unipen Iv/D5 100ml) 110 ml @ 100 mls/hr Q4H IV 09/21/16 14:00 09/30/16 17:59 09/22/16 10:16 100 MLS/HR Aspirin (Ecotrin Tab) 81 mg Q12 PO 09/21/16 09:00 10/21/16 08:59 09/22/16 09:18 81 MG Objective Vital Signs Date Time Temp Pulse Resp B/P Pulse Ox O2 Delivery O2 Flow Rate FiO2 09/22/16 07:53 Room Air 09/22/16 07:33 36.9 79 18 148/72 93 Room Air 09/21/16 22:57 37.0 59 16 133/82 97 Room Air 09/21/16 19:32 Room Air 09/21/16 16:00 99 Room Air 09/21/16 15:17 36.5 66 18 118/75 99 Room Air 09/21/16 11:05 36.4 67 18 119/66 98 Room Air Physical Exam General Appearance: no apparent distress Eyes: sclerae normal Neck: no JVD Respiratory/Chest: lungs clear, no respiratory distress Cardiovascular: regular rate, rhythm, no murmur Abdomen: normal bowel sounds, non tender, soft Extremities: no pedal edema Neurologic/Psychiatric: no motor/sensory deficits, alert, oriented x 3 Skin: warm/dry Laboratory Results Last 24 Hours Test 09/22/16 06:30 White Blood Count 5.68 K/uL Red Blood Count 4.32 M/uL Hemoglobin 11.3 g/dL Hematocrit 35.1 % Mean Corpuscular Volume 81.3 fL Mean Corpuscular Hemoglobin 26.2 pg Mean Corpuscular Hemoglobin Concent 32.2 g/dl RDW Standard Deviation 44.2 fL RDW Coefficient of Variation 15.0 % Platelet Count 333 K/uL Mean Platelet Volume 9.9 fL Sodium Level 142 mmol/L Potassium Level 4.1 mmol/L Chloride Level 109 mmol/L Carbon Dioxide Level 23 mmol/L Anion Gap 10.0 mmol/L Blood Urea Nitrogen 7 mg/dl Creatinine 0.77 mg/dl Est Creatinine Clear Calc Drug Dose 85.3 ml/min Estimated GFR () 100.0 Estimated GFR (Non- 86.3 BUN/Creatinine Ratio 9.5 Random Glucose 77 mg/dl Calcium Level 7.9 mg/dl Assessment and Plan (1) Infection of right foot Assessment & Plan: On nafcillin per ID. Will need PICC. (2) Asthma Assessment & Plan: Stable. Not in exacerbation. (3) Allergic rhinitis Assessment & Plan: Stable.
--- NOTE | 2016-09-22 12:29 | Orthopedic Progress Note ---
Orthopedic Progress Note Date of Service Sep 22, 2016. Subjective Post OP Day: 2 Reports: pain controlled w PO medications (No pain in the foot), Denies: complaints, feeling well Objective calves soft nontender, N/V intact, capillary refill less than 2 sec., incision C /D/I, A&O x3, toes mobile The rest of the packing, 10-12 inches, was removed. New dressing placed. No erythema. No streaking. Only blood drainage from the wound. Fairly small amount of bloody d/c on the gauze dressing. Date Time Temp Pulse Resp B/P Pulse Ox O2 Delivery O2 Flow Rate FiO2 09/22/16 07:53 Room Air 09/22/16 07:33 36.9 79 18 148/72 93 Room Air 09/21/16 22:57 37.0 59 16 133/82 97 Room Air 09/21/16 19:32 Room Air 09/21/16 16:00 99 Room Air 09/21/16 15:17 36.5 66 18 118/75 99 Room Air Laboratory Results 24 Hours: Test 09/22/16 06:30 Hematocrit 35.1 % Hemoglobin 11.3 g/dL Assessment & Plan Assessment: POD #2 s/p 1. Right foot incision and drainage plantar ulcer. 2. Debridement of skin, fascia, and tendon of the right foot. 3. Removal of sutures x2 Plan: IV Nafcillin--Will set up for home IV Nafcillin 12 grams daily. Order PICC line. Awaiting final cultures. Gram stain negative for organisms. No growth to date. Consult ID for antibiotic input. D/C planning. (1) Infection of right foot Acute (2) Asthma Chronic (3) Allergic rhinitis Inhouse Planning Pain Management: Morphine, Oxy IR DVT Prophylaxis: ASA Discharge Planning Discharge Planning: uncertain (Possibly home today with IV antibiotics if PICC can be placed and antibiotics set up.) Pain Management: Percocet
[2016-09-22] MEDS ORDERED: NAFC2INJ IV (12:40)
[2016-09-22] MEDS ORDERED: OXYC-57 PO (12:40)
[2016-09-22] MEDS ORDERED: ASPEC81 PO (12:40)
--- NOTE | 2016-09-22 12:41 | Discharge Instructions ---
Discharge Instructions Admission Reason for Admission: Cellulitis Of Right Lower Limb Discharge Discharge Diagnosis / Problem: right foot infection Discharge Goals Goal(s): Decrease discomfort, Improve function Activity Recommendations Activity Limitations: as noted below Lifting Limitations: until after follow-up appointment Exercise/Sports Limitations: until after follow-up appointment May Resume Sexual Activity: when tolerated Shower/Bathe: keep incision dry Driving or Machine Use: When cleared by Dr. Omer's office Weightbearing Status: Right non-weightbearing . Instructions / Follow-Up Instructions / Follow-Up ACTIVITY RECOMMENDATIONS: Limitations: No weight bearing to affected limb at all times. SPECIAL CARE INSTRUCTIONS: * Some drainage onto the dressing is normal and is no cause for alarm. * Some swelling is natural especially after walking. * When resting, keep your foot elevated above the level of your heart. * Call [facility] if you notice: -Increased drainage -Fever over 101 degrees F -Severe constant pain BANDAGE: * Leave bandage/cast in place unless otherwise directed. * Keep bandage/cast dry at all times. FOLLOW UP VISIT WITH DR. OMER If appointment is not already scheduled: Please call [facility] after you get home today to schedule a follow-up appointment for [address] Omer at . Current Hospital Diet Patient's current hospital diet: Regular Diet Discharge Diet Recommended Diet: Regular Diet Procedures Procedures Performed: Right Foot Incision and Drainage Plantar Ulceration, Removal Sutures from 3rd Flexor Tendon x 2, Debridement of:Skin, Fascia, Tendon Pending Studies Studies pending at discharge: no Medical Emergencies . Who to Call and When: Medical Emergencies: If at any time you feel your situation is an emergency, please call 911 immediately. . Non-Emergent Contact Non-Emergency issues call your: Surgeon Call Non-Emergent contact if: temperature is above 101, your pain is not controlled, your pain is worsening, wound has increased drainage, wound has increased redness, wound has increased pain . "Provider Documentation" section prepared by Vincent Vaughn. VTE Core Measure Inpt VTE Proph given/why not?: Other Anticoagulation (Aspirin)
[2016-09-22 15:26] VITALS: BP 123/77; PULSE 62; TEMP 36.8; O2SAT 96
--- NOTE | 2016-09-22 18:58 | Infectious Disease Progress Nt ---
Progress Note Date of Service Sep 22, 2016. Subjective Pt evaluation today including: conversation w/ patient, conversation w/ family , physical exam, chart review, lab review, review of studies, conversation w/ medical device sales consultant, review of inpatient medication list patient comfortable today, offers no new complaints. remains afebrile. Cultures now growing Gram-positive cocci, probably same Staph that has been recovered previously. All Other Systems: Reviewed and Negative Medications Current Inpatient Medications Medications (Trade) Dose Ordered Sig/Ankur Route Start Time Stop Time Status Last Admin Dose Admin Potassium Chloride/Dextrose/ Sod Cl (D5W And 1/2nss + 20meq KCl) 1,000 ml @ 100 mls/hr Q10H IV 09/20/16 18:00 10/20/16 17:59 09/22/16 09:18 100 MLS/HR Oxycodone HCl (Roxicodone Immediate Rel Tab) 1-2 TABS FOR PAIN 1 TABLET ... Q4H PRN PO 09/20/16 15:30 10/04/16 15:29 09/21/16 15:47 5 MG Morphine Sulfate (MoRPHine SULFATE INJ) 1 mg Q1HWA PRN IV 09/20/16 15:30 10/04/16 15:29 Magnesium Hydroxide (Milk Of Magnesia Susp) 30 ml Q6H PRN PO 09/20/16 15:30 10/20/16 15:29 Bisacodyl (Dulcolax Supp) 10 mg DAILY PRN CO 09/20/16 15:30 10/20/16 15:29 Sodium Biphosphate/ Sodium Phosphate (Fleet Enema) 132 ml DAILY PRN CO 09/20/16 15:30 10/20/16 15:29 Senna (Senokot Tab) 17.2 mg HS PO 09/20/16 21:00 10/20/16 20:59 09/21/16 21:14 17.2 MG Docusate Sodium (coLACE CAP) 100 mg BID PO 09/20/16 21:00 10/20/16 20:59 09/22/16 09:18 100 MG Diphenhydramine HCl (Benadryl Cap) 25 mg Q8H PRN PO 09/20/16 15:30 10/20/16 15:29 Al Hydrox/Mg Hydrox/Simethicone (Maalox Max Susp) 15 ml Q4H PRN PO 09/20/16 15:30 10/20/16 15:29 Zolpidem Tartrate (Ambien Tab) 5 mg HSZ PRN PO 09/20/16 15:30 10/20/16 15:29 Multivitamins (Multivitamin Tab) 1 tab QAM PO 09/21/16 09:00 10/21/16 08:59 09/22/16 09:18 1 TAB Ondansetron HCl (Zofran Inj) 4 mg Q6H PRN IV 09/20/16 15:30 10/20/16 15:29 Pantoprazole Sodium 40 mg 40 mg QAM PO 09/21/16 09:00 10/21/16 08:59 09/22/16 09:18 40 MG Nafcillin Sodium/ Dextrose (Unipen Iv/D5 100ml) 110 ml @ 100 mls/hr Q4H IV 09/21/16 14:00 09/30/16 17:59 09/22/16 17:33 100 MLS/HR Aspirin (Ecotrin Tab) 81 mg Q12 PO 09/21/16 09:00 10/21/16 08:59 09/22/16 09:18 81 MG Objective Vital Signs Date Time Temp Pulse Resp B/P Pulse Ox O2 Delivery O2 Flow Rate FiO2 09/22/16 16:00 Room Air 09/22/16 15:26 36.8 62 14 123/77 96 Room Air 09/22/16 07:53 Room Air 09/22/16 07:33 36.9 79 18 148/72 93 Room Air 09/21/16 22:57 37.0 59 16 133/82 97 Room Air 09/21/16 19:32 Room Air Physical Exam General Appearance: WD/WN, no apparent distress Eyes: normal inspection, EOMI, sclerae normal ENT: normal ENT inspection, hearing grossly normal, pharynx normal Neck: supple, no adenopathy, trachea midline Respiratory/Chest: lungs clear, normal breath sounds, no respiratory distress Cardiovascular: regular rate, rhythm, no gallop, no murmur Abdomen: normal bowel sounds, non tender, soft, no organomegaly Extremities: non-tender, no calf tenderness, normal capillary refill Neurologic/Psychiatric: alert, oriented x 3 Skin: normal color, warm/dry, no rash, + pertinent finding ( Surgical dressing intact) Lymphatic: no adenopathy Laboratory Results Last 24 Hours Test 09/22/16 06:30 White Blood Count 5.68 K/uL Red Blood Count 4.32 M/uL Hemoglobin 11.3 g/dL Hematocrit 35.1 % Mean Corpuscular Volume 81.3 fL Mean Corpuscular Hemoglobin 26.2 pg Mean Corpuscular Hemoglobin Concent 32.2 g/dl RDW Standard Deviation 44.2 fL RDW Coefficient of Variation 15.0 % Platelet Count 333 K/uL Mean Platelet Volume 9.9 fL Sodium Level 142 mmol/L Potassium Level 4.1 mmol/L Chloride Level 109 mmol/L Carbon Dioxide Level 23 mmol/L Anion Gap 10.0 mmol/L Blood Urea Nitrogen 7 mg/dl Creatinine 0.77 mg/dl Est Creatinine Clear Calc Drug Dose 85.3 ml/min Estimated GFR () 100.0 Estimated GFR (Non- 86.3 BUN/Creatinine Ratio 9.5 Random Glucose 77 mg/dl Calcium Level 7.9 mg/dl Assessment and Plan (1) Infection of right foot Status: Acute On nafcillin per ID. Will need PICC. (2) Asthma Status: Chronic Stable. Not in exacerbation. (3) Allergic rhinitis Stable. Chronic right foot infection likely with MSSA following repair of tendon laceration April 2016, now S/P debridement and removal of sutures X 2. Nafcillin appropriate and will need at least several weeks of IV therapy. Nafcillin to be dosed at 12 grams daily by continuous infusion which she has done in past. Will discuss.
[2016-09-22] MEDS: SENNA 8.6 MG TAB PO SCH (20:42)
[2016-09-22 23:25] VITALS: BP 128/74; PULSE 76; TEMP 36.6; O2SAT 97
[2016-09-22 23:48] VITALS: O2SAT 97
[2016-09-23] MEDS: DEXTROSE 5% IV SCH ×3 (01:51→09:58)
[2016-09-23] MEDS: NAFCILLIN SOD IV SCH ×3 (01:51→09:58)
[2016-09-23] MEDS: D5W AND 1/2NSS + 20MEQ KCL 1,000 ML IV SCH (05:35)
[2016-09-23 06:24] LABS: HEMATOCRIT 34.4 % (37-47); MEAN CELL VOLUME 81.1 fL (80-100); MEAN CORPUSCULAR HEMOGLOBIN 26.7 pg (25-34); MEAN CORPUSCULAR HGB CONC 32.8 g/dl (32-36); MEAN PLATELET VOLUME 9.5 fL (7.4-10.4); PLATELET COUNT 309 K/uL (130-400); RED BLOOD COUNT 4.24 M/uL (4.2-5.4)
[2016-09-23 07:47] VITALS: BP 119/72; PULSE 74; TEMP 36.7; O2SAT 95
--- NOTE | 2016-09-23 09:42 | Orthopedic Progress Note ---
Orthopedic Progress Note Date of Service Sep 23, 2016. Subjective Post OP Day: 3 Reports: feeling well Additional Notes: PICC line in place Objective N/V intact, dressing C/D/I, toes mobile Date Time Temp Pulse Resp B/P Pulse Ox O2 Delivery O2 Flow Rate FiO2 09/23/16 08:00 Room Air 09/23/16 07:47 36.7 74 16 119/72 95 Room Air 09/22/16 23:48 97 Room Air 2.0 09/22/16 23:25 36.6 76 16 128/74 97 Room Air 09/22/16 16:00 Room Air 09/22/16 15:26 36.8 62 14 123/77 96 Room Air Laboratory Results 24 Hours: Test 09/23/16 05:57 Hematocrit 34.4 % Hemoglobin 11.3 g/dL Assessment & Plan Assessment: POD #3 s/p Right foot incision and drainage plantar ulcer. 2. Debridement of skin, fascia, and tendon of the right foot. 3. Removal of sutures x2 Plan: IV Nafcillin--Will set up for home IV Nafcillin 12 grams daily. D/C planning- home today (1) Infection of right foot Acute (2) Asthma Chronic (3) Allergic rhinitis Inhouse Planning Pain Management: Morphine, Oxy IR DVT Prophylaxis: ASA Discharge Planning Discharge Planning: uncertain (Possibly home today with IV antibiotics if PICC can be placed and antibiotics set up.) Pain Management: Percocet
[2016-09-23] MEDS: MULTIVITAMIN TAB PO SCH (09:46)
[2016-09-23] MEDS: PANTOprazole SOD 40 MG TAB PO SCH (09:47)
[2016-09-23] MEDS: DOCUSATE SODIUM 100 MG CAP PO SCH (09:47)
[2016-09-23] MEDS: ASPIRIN 81 MG ECTAB PO SCH (09:47)
[2016-09-23 10:06] VITALS: BP 119/72; PULSE 74; TEMP 36.7; O2SAT 95
--- NOTE | 2016-10-03 12:47 | Discharge Summary ---
Orthopedic Discharge Summary Admission Date/Reason Sep 20, 2016 at 17:10 Cellulitis Of Right Lower Limb. Discharge Date/Disposition Sep 23, 2016 Home with services Diagnosis Principal Diagnosis: right foot cellulitis, post op infection Procedure(s) Performed 1. Right foot incision and drainage plantar ulcer. 2. Debridement of skin, fascia, and tendon of the right foot. 3. Removal of sutures x2 Consultations Medicine Infectious Disease Medication Reconciliation New Medications: Nafcillin Sodium (Nafcillin Sodium) 2 Gm Inj 12 GM IV DAILY for 28 Days, 0 Refills Oxycodone/Acetaminophen 5MG/325MG (Percocet 5MG/325MG) Tab 1-2 TABLETS PO Q4H PRN for Pain, #60 TAB Aspirin (Aspirin EC Low Dose) 81 Mg Ectab 81 MG PO Q12 for 30 Days Continued Medications: Acetaminophen (Tylenol) 500 Mg Tab 1000 MG PO, TAB Fluticasone Prop/Salmeterol (Advair Diskus 500/50 60 Dose) 1 Ea Aerp 1 PUFFS INH BID for 30 Days, #1 INHALER 5 Refills Fluticasone Propionate (Nasal) (Flonase Allergy Relief) 50 Mcg/Act Spr 2 SPRAY BENJI HS [albuterol inhaler] () 2 PUFFS INH [id number] Discontinued Medications: Cephalexin Monohydrate (Keflex) 500 Mg Cap 500 MG PO QID, CAP Sulfa/Trimethoprim (Bactrim Ds 800MG/160MG) Tab 1 TAB PO BID, #6 TAB Admission Physical Exam As per Admitting History & Physical. Hospital Course (1) Infection of right foot (2) Asthma (3) Allergic rhinitis The patient was admitted on 1..17 and underwent an I & D of the right foot. She had daily dressing changes while in the hospital. On POD #2, the rest of the packing was removed from the foot. A PICC line was placed later that day. On POD #3, home nursing was set up for home IV antibiotic tx and she was then d/ c'd home. Discharge Instructions ACTIVITY RECOMMENDATIONS: Limitations: No weight bearing to affected limb at all times. SPECIAL CARE INSTRUCTIONS: * Some drainage onto the dressing is normal and is no cause for alarm. * Some swelling is natural especially after walking. * When resting, keep your foot elevated above the level of your heart. * Call [facility] if you notice: -Increased drainage -Fever over 101 degrees F -Severe constant pain BANDAGE: * Leave bandage/cast in place unless otherwise directed. * Keep bandage/cast dry at all times. FOLLOW UP VISIT WITH DR. OMER If appointment is not already scheduled: Please call [facility] after you get home today to schedule a follow-up appointment for [address] Omer at . Please refer to the electronic Patient Visit Report (Discharge Instructions) for additional information.
== END 2016-09-23 12:43 | disposition home health service (06) | DRG 983 ==
LOC: ENRESERVTM → ENRESERVDT → C.ACU 11:21 → C.MSW 17:10
PROVIDERS: ADMIT Orthopaedic Surgery Sports Medicine; ATTEND Orthopaedic Surgery Sports Medicine
PROC: 0LBV0ZZ Excision of Right Foot Tendon, Open Approach (ICD-10-PCS; principal; 2016-09-20 13:30)
PROC: 02HV33Z Insertion of Infusion Device into Superior Vena Cava, Percutaneous Approach (ICD-10-PCS; 2016-09-22)
DX: L03.115 Cellulitis of right lower limb (principal); L97.519 Non-pressure chronic ulcer of other part of right foot with unspecified severity; B95.61 Methicillin susceptible Staphylococcus aureus infection as the cause of diseases classified elsewhere; M85.871 Other specified disorders of bone density and structure, right ankle and foot; J45.909 Unspecified asthma, uncomplicated; Z98.890 Other specified postprocedural states

== ENCOUNTER → 2016-10-24 | Day surgery (SDC) | payer OTHER ==
[~2016-10-24] VITALS: Ht 172.7 cm; Wt 77.5 kg
[~2016-10-24] MED LIST changes: +ACET-1256 PO; +ASPEC81 PO; -BUPIVACAINE 0.5 % 5 MG/1 ML PF 10ML VIAL ONE; -CEPH500C PO; -LACTATED RINGER'S 1000ML 1,000 ML IV SCH; +NAFC2INJ IV; +OXYC-57 PO; -SULF800T23 PO; +albuterol inhaler INH
[2016-10-24 15:51] VITALS: BP 162/95; PULSE 86; TEMP 36.3; O2SAT 98; Ht 172.7 cm; Wt 77.5 kg
== END | disposition home or self-care (01) ==
LOC: C.MTU 15:42
PROVIDERS: ATTEND Internal Medicine Infectious Disease
DX: Z45.2 Encounter for adjustment and management of vascular access device (principal); L08.9 Local infection of the skin and subcutaneous tissue, unspecified

== ENCOUNTER → 2016-11-29 | Outpatient (CLI) | payer OTHER ==
[~2016-11-29] MED LIST changes: -ACET-1256 PO; -ASPEC81 PO; -NAFC2INJ IV; -OXYC-57 PO; -albuterol inhaler INH
[2016-11-29 12:27] LABS: BASO % 0.9 %; BASO ABS # 0.05 K/uL (0-0.2); COMPLETE YES; EOS % 7.1 %; IG% 0.2 %; MEAN CELL VOLUME 82.4 fL (80-100); MEAN CORPUSCULAR HEMOGLOBIN 26.5 pg (25-34); MEAN CORPUSCULAR HGB CONC 32.2 g/dl (32-36); MEAN PLATELET VOLUME 9.5 fL (7.4-10.4); MONO % 11.4 %; NEUT % 50.4 %; PLATELET COUNT 438 K/uL (130-400); RED BLOOD COUNT 4.49 M/uL (4.2-5.4); WHITE BLOOD COUNT 5.33 K/uL (4.8-10.8)
[2016-11-29 12:42] LABS: ALT/SGPT 21 U/L (12-78); BLOOD UREA NITROGEN 14 mg/dl (7-18); BUN/CREATININE RATIO 18.1 (10-20); CALCIUM 8.4 mg/dl (8.5-10.1); CARBON DIOXIDE 28 mmol/L (21-32); CHLORIDE 109 mmol/L (98-107); CREATININE 0.75 mg/dl (0.60-1.20); GLUCOSE 94 mg/dl (70-99); SODIUM 141 mmol/L (136-145)
[2016-11-29 12:46] LABS: ALB/GLOB RATIO 0.9 (0.9-2); ALKALINE PHOSPHATASE 93 U/L (45-117); AST/SGOT 13 U/L (15-37); C-REACTIVE PROTEIN 0.62 mg/dl (0-0.29)
== END | disposition home or self-care (01) ==
LOC: C.LAB1850 11:03
PROVIDERS: ATTEND Internal Medicine Infectious Disease
DX: L02.611 Cutaneous abscess of right foot (principal)

== ENCOUNTER → 2017-01-01 | Outpatient (CLI) | payer OTHER ==
[2017-01-01 14:41] LABS: BASO % 0.6 %; BASO ABS # 0.04 K/uL (0-0.2); COMPLETE YES; EOS % 2.6 %; HEMATOCRIT 37.5 % (37-47); IG% 0.2 %; LYMPH % 29.6 %; LYMPH ABS # 1.92 K/uL (1.2-3.4); MEAN CORPUSCULAR HEMOGLOBIN 25.4 pg (25-34); MEAN CORPUSCULAR HGB CONC 30.7 g/dl (32-36); MEAN PLATELET VOLUME 9.9 fL (7.4-10.4); MONO % 6.2 %; NEUT % 60.8 %; PLATELET COUNT 442 K/uL (130-400); RED BLOOD COUNT 4.52 M/uL (4.2-5.4); WHITE BLOOD COUNT 6.49 K/uL (4.8-10.8)
[2017-01-01 15:07] LABS: ALT/SGPT 20 U/L (12-78); AST/SGOT 13 U/L (15-37); BLOOD UREA NITROGEN 12 mg/dl (7-18); BUN/CREATININE RATIO 15.7 (10-20); C-REACTIVE PROTEIN < 0.29 mg/dl (0-0.29); CARBON DIOXIDE 28 mmol/L (21-32); CHLORIDE 105 mmol/L (98-107); CREATININE 0.77 mg/dl (0.60-1.20); GLUCOSE 95 mg/dl (70-99); POTASSIUM 3.9 mmol/L (3.5-5.1); SODIUM 141 mmol/L (136-145)
[2017-01-01 15:10] LABS: ALB/GLOB RATIO 1.1 (0.9-2); ALKALINE PHOSPHATASE 106 U/L (45-117); TOTAL IRON BINDING CAPACITY 451 mcg/dl (250-450)
== END | disposition home or self-care (01) ==
LOC: C.LAB1850 13:35
PROVIDERS: ATTEND Internal Medicine Infectious Disease
DX: L02.611 Cutaneous abscess of right foot (principal)